=== PATIENT | male | born 1990 ===

== ENCOUNTER 2017-02-02 05:53 | Emergency (ER) | payer SELFPAY ==
[~2017-02-02] VITALS: Ht 180.3 cm; Wt 100.0 kg
[2017-02-02 05:55] VITALS: Ht 180.3 cm; Wt 100.0 kg
== END 2017-02-02 07:18 | disposition left against medical advice (07) ==
LOC: E/R 05:53
DX: Z53.21 Procedure and treatment not carried out due to patient leaving prior to being seen by health care provider (principal)

== ENCOUNTER 2017-07-08 19:48 | Emergency (ER) | END 2017-07-08 22:00 | disposition left against medical advice (07) ==